=== PATIENT | male | born 1960 | race Caucasian/White ===

== ENCOUNTER 2019-12-14 15:17 | Emergency (ER) | payer OTHER, SELFPAY ==
--- NOTE | ~2019-12-14 | XR_ITS ---
XR humerus RT 12/14/2019 16:06 INDICATION: Right arm pain status post recent fall PROCEDURE: 4 views right humerus COMPARISON: No prior studies for comparison. FINDINGS: Fracture, dislocation or subluxation is not identified. The soft tissues appear within norm al limits. No foreign bodies are identified. IMPRESSION: 1: NO ACUTE BONE OR JOINT ABNORMALITY IDENTIFIED. Reviewed, dictated and finalized at location A.
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
[2019-12-14 15:36] VITALS: BP 161/90; PULSE 104; RESP 16; TEMP 37.6; O2SAT 98
== END 2019-12-14 16:29 | disposition home or self-care (01) ==
PROVIDERS: Emergency Provider Nurse Practitioner; PCP Family Medicine
DX: S49.91XA Unspecified injury of right shoulder and upper arm, initial encounter (principal); W19.XXXA Unspecified fall, initial encounter; S89.92XA Unspecified injury of left lower leg, initial encounter; E11.9 Type 2 diabetes mellitus without complications; Z79.84 Long term (current) use of oral hypoglycemic drugs
CPT/HCPCS: 73060; 99213; A4565; G0463

== ENCOUNTER 2020-03-08 13:20 | Emergency (ER) | payer OTHER, SELFPAY ==
--- NOTE | 2020-03-08 13:25 | ED.GENADULT ---
HPI - General Adult General Chief complaint: Skin/Abscess/Foreign Body Stated complaint: poss spider bite right leg Time Seen by Provider: 03/08/20 13:25 Source: patient Mode of arrival: ambulatory Limitations: no limitations History of Present Illness HPI narrative: 59-year-old male patient presents to the [facility] with complaints of a wound to the right lower leg for the past 6 weeks. Patient states that he was cutting down a tree in his yard about 6 weeks ago and had some blisters to the right lower leg area and thought maybe he came in contact with some poison julianna or poison oak. Patient states that it was starting to get better however for the last couple weeks is developed an ulcer which increase in pain but denies any discharge. Patient denies any fevers, body aches or chills. Patient is a diabetic but states his sugars have been okay. Related Data Home Medications Medication Instructions Recorded Confirmed glipizide 10 mg PO DAILY 11/06/19 03/08/20 lisinopril 10 mg PO DAILY 11/06/19 03/08/20 metformin 1,000 mg PO BID 11/06/19 03/08/20 diclofenac sodium 75 mg PO DAILY 12/14/19 03/08/20 tamsulosin 0.4 mg PO DAILY 03/08/20 03/08/20 Allergies Allergy/AdvReac Type Severity Reaction Status Date / Time No Known Allergies Allergy Verified 03/08/20 13:40 Review of Systems Review of Systems: Narrative: CONSTITUTIONAL: Denies fever, chills, or sweats. EYES: Denies visual changes, redness, or discharge. ENT: Denies rhinorrhea, congestion, sore throat, or otalgia. CARDIOVASCULAR: Denies chest pain, palpitations, or edema. RESPIRATORY: Denies cough or dyspnea. GASTROINTESTINAL: Denies abdominal pain, nausea, vomiting, or diarrhea. GENITOURINARY: Denies dysuria or hematuria. SKIN: Denies rash or itching. Positive wound to right lower leg MUSCULOSKELETAL: Denies back pain, joint pain, or myalgia. NEUROLOGIC: Denies headache, numbness, or weakness. PSYCHIATRIC: Denies anxiety or depression. COUNTS INCLUDE 234 BEDS AT THE [facility] Past Medical History Medical History Diabetes mellitus Surgical History Surgical History Status post gastric banding surgery (~2009) Family History Family History Father Lung cancer Social History Social History Smoking status: Never smoker Spiritual care concerns: No Comments At the time of my signature I agree with nursing past medical history, surgical, social, and family history. There is no relevant family history pertinent to the presenting complaint. Exam Narrative: Exam Narrative: GENERAL: Well-appearing, well-nourished, and in no acute distress. HEAD: Normocephalic, atraumatic. EYES: PERRLA and EOMI. ENT: Nares clear, no rhinorrhea or epistaxis. Mucous membranes moist. NECK: Supple. No lymphadenopathy CHEST: Clear to auscultation. No respiratory distress. HEART: Regular rate and rhythm. No murmur heard. Normal peripheral pulses. ABDOMEN: Soft, nontender, nondistended, normal active bowel sounds. EXTREMITIES: Normal range of motion. No edema. SKIN: Warm, dry, no rash. Patient has approximately 1.5 cm x 1.5 cm ulcer noted to the right lower leg. There is no abscess noted, no surrounding erythema or warmth to the skin. There is some tenderness noted around the area. There does appear to be some green discharge in the middle of the wound. NEURO: No focal deficits. Alert and oriented x3. Course Vital Signs Vital signs: Vital Signs Temperature 36.6 C 03/08/20 13:30 Pulse Rate 94 03/08/20 13:30 Respiratory Rate 16 03/08/20 13:30 Blood Pressure 124/79 03/08/20 13:30 Pulse Oximetry 99 03/08/20 13:30 Temperature 36.6 C 03/08/20 13:30 Pulse Rate 94 03/08/20 13:30 Respiratory Rate 16 03/08/20 13:30 Blood Pressure 124/79 03/08/20 13:30 Pulse Oximetry 99
[2020-03-08 13:30] VITALS: BP 124/79; PULSE 94; RESP 16; TEMP 36.6; O2SAT 99
== END 2020-03-08 13:49 | disposition home or self-care (01) ==
PROVIDERS: Emergency Provider Nurse Practitioner Family; PCP Family Medicine
DX: L97.911 Non-pressure chronic ulcer of unspecified part of right lower leg limited to breakdown of skin (principal); E11.9 Type 2 diabetes mellitus without complications
CPT/HCPCS: 99213; G0463

== ENCOUNTER 2021-10-11 08:09 | Outpatient (CLI) | payer OTHER, SELFPAY ==
[2021-10-11 08:55] LABS: Basophils Absolute Auto 0.1 K/mm3 (0.0-0.1); Basophils Percent Auto 1.3 % (0.2-1.2); Eosinophils Absolute Auto 0.3 K/mm3 (0-0.3); Eosinophils Percent Auto 3.7 % (0-4.4); Hematocrit 45.3 % (42.0-52.0); Hemoglobin 15.3 g/dL (14.0-18.0); Immature Granulocyte Absolute 0.06 K/mm3 (0.00-0.031); Immature Granulocyte Percent A 0.9 % (0-0.5); Lymphocytes Absolute Auto 1.27 K/mm3 (0.9-3.2); Lymphocytes Percent Auto 18.9 % (18.3-44.2); Mean Corpuscular HGB Conc 33.8 g/dl (32-36); Mean Corpuscular Hemoglobin 30.3 pg (26-34); Mean Corpuscular Volume 89.7 fl (80-100); Mean Platelet Volume 10.2 fl (7.4-10.4); Monocytes Absolute Auto 0.5 K/mm3 (0.1-0.6); Monocytes Percent Auto 7.6 % (2.6-8.5); Neutrophils Absolute Auto 4.6 K/mm3 (1.3-6.7); Neutrophils Percent Auto 67.6 % (45.5-73.1); Platelet Count Result 229 k/mm3 (150-375); Red Blood Count 5.05 M/mm3 (4.6-6.20); Red Cell Distribution Width 13.2 % (11.5-14.5); White Blood Count 6.7 K/mm3 (4.5-10.0)
[2021-10-11 09:01] LABS: Anion Gap 7 mmol/L (8-16); Blood Urea Nitrogen 17 mg/dL (9-20); Calcium 8.6 mg/dL (8.4-10.2); Carbon Dioxide 29 mmol/L (22-30); Chloride 101 mmol/L (98-107); Estimated Glomerular Filt Rate > 60; Glucose 219 mg/dL (65-110); Hemoglobin A1C 8.5 % (<5.7); Potassium 4.1 mmol/L (3.4-5.0); Sodium 137 mmol/L (137-145)
== END 2021-10-11 08:10 | disposition home or self-care (01) ==
PROVIDERS: PCP Family Medicine; Visit Provider Family Medicine
DX: E11.9 Type 2 diabetes mellitus without complications (principal); I10 Essential (primary) hypertension
CPT/HCPCS: 36415; 80048; 83036; 85025

== ENCOUNTER 2022-02-21 06:40 | Outpatient (CLI) | payer OTHER, SELFPAY ==
[2022-02-21 07:26] LABS: Anion Gap 10 mmol/L (8-16); Blood Urea Nitrogen 14 mg/dL (9-20); Calcium 8.6 mg/dL (8.4-10.2); Carbon Dioxide 29 mmol/L (22-30); Chloride 100 mmol/L (98-107); Estimated Glomerular Filt Rate > 60; Glucose 189 mg/dL (65-110); Hemoglobin A1C 9.5 % (<5.7); Potassium 4.2 mmol/L (3.4-5.0); Sodium 139 mmol/L (137-145)
== END 2022-02-21 06:41 | disposition home or self-care (01) ==
LOC: ANHLAB 06:44
PROVIDERS: PCP Family Medicine; Visit Provider Family Medicine
DX: E11.9 Type 2 diabetes mellitus without complications (principal)
CPT/HCPCS: 36415; 80048; 83036

== ENCOUNTER 2022-05-24 06:38 | Outpatient (CLI) | payer OTHER, SELFPAY ==
[2022-05-24 08:03] LABS: Anion Gap 5 mmol/L (8-16); Blood Urea Nitrogen 17 mg/dL (9-20); Calcium 8.4 mg/dL (8.4-10.2); Carbon Dioxide 28 mmol/L (22-30); Chloride 103 mmol/L (98-107); Estimated Glomerular Filt Rate > 60; Glucose 201 mg/dL (65-110); Sodium 136 mmol/L (137-145)
[2022-05-24 08:26] LABS: Hemoglobin A1C 8.7 % (<5.7)
== END 2022-05-24 06:39 | disposition home or self-care (01) ==
PROVIDERS: PCP Family Medicine; Visit Provider Family Medicine
DX: E11.9 Type 2 diabetes mellitus without complications (principal)
CPT/HCPCS: 36415; 80048; 83036

== ENCOUNTER 2022-08-01 06:36 | Outpatient (CLI) | payer OTHER, SELFPAY ==
[2022-08-01 07:37] LABS: Basophils Absolute Auto 0.1 K/mm3 (0.0-0.1); Basophils Percent Auto 0.9 % (0.2-1.2); Eosinophils Absolute Auto 0.4 K/mm3 (0-0.3); Eosinophils Percent Auto 5.1 % (0-4.4); Hematocrit 45.5 % (42.0-52.0); Hemoglobin 15.4 g/dL (14.0-18.0); Immature Granulocyte Absolute 0.06 K/mm3 (0.00-0.031); Immature Granulocyte Percent A 0.9 % (0-0.5); Lymphocytes Absolute Auto 1.51 K/mm3 (0.9-3.2); Lymphocytes Percent Auto 21.9 % (18.3-44.2); Mean Corpuscular HGB Conc 33.8 g/dl (32-36); Mean Corpuscular Hemoglobin 30.2 pg (26-34); Mean Corpuscular Volume 89.2 fl (80-100); Mean Platelet Volume 10.3 fl (7.4-10.4); Monocytes Absolute Auto 0.6 K/mm3 (0.1-0.6); Neutrophils Absolute Auto 4.4 K/mm3 (1.3-6.7); Neutrophils Percent Auto 63.2 % (45.5-73.1); Platelet Count Result 255 k/mm3 (150-375); Red Cell Distribution Width 13.2 % (11.5-14.5); White Blood Count 6.9 K/mm3 (4.5-10.0)
[2022-08-01 07:54] LABS: Alanine Aminotransferase 23 U/L (6-50); Albumin Level 4.5 g/dL (3.5-5.1); Alkaline Phosphatase 84 U/L (38-126); Anion Gap 7 mmol/L (8-16); Aspartate Amino Transferase 26 U/L (17-59); Bilirubin,Total 0.9 mg/dL (0.2-1.3); Blood Urea Nitrogen 17 mg/dL (9-20); Calcium 8.9 mg/dL (8.4-10.2); Carbon Dioxide 31 mmol/L (22-30); Chloride 99 mmol/L (98-107); Cholesterol 225 mg/dL (0-200); Estimated Glomerular Filt Rate > 60; Glucose 229 mg/dL (65-110); HDL Direct 38 mg/dL; Potassium 4.4 mmol/L (3.4-5.0); Sodium 137 mmol/L (137-145); Triglycerides 216 mg/dL (<150)
[2022-08-01 07:58] LABS: LDL Cholesterol Direct 138 mg/dL
[2022-08-01 08:14] LABS: Hemoglobin A1C 9.3 % (<5.7)
[2022-08-01 08:17] LABS: Prostate Specific Antigen < 0.1 ng/mL (< OR = 4.0)
== END 2022-08-01 06:37 | disposition home or self-care (01) ==
LOC: ANHLAB 06:39
PROVIDERS: PCP Family Medicine; Visit Provider Family Medicine
DX: E78.5 Hyperlipidemia, unspecified (principal); Z79.899 Other long term (current) drug therapy; E11.9 Type 2 diabetes mellitus without complications; I10 Essential (primary) hypertension
CPT/HCPCS: 36415; 80048; 80061; 80076; 83036; 84153; 85025

== ENCOUNTER 2022-10-31 07:12 | Outpatient (CLI) | payer OTHER, SELFPAY ==
[2022-10-31 08:16] LABS: Hemoglobin A1C 7.4 % (<5.7)
[2022-10-31 08:50] LABS: Anion Gap 7 mmol/L (8-16); Blood Urea Nitrogen 15 mg/dL (9-20); Calcium 8.7 mg/dL (8.4-10.2); Carbon Dioxide 28 mmol/L (22-30); Chloride 101 mmol/L (98-107); Estimated Glomerular Filt Rate > 60; Glucose 283 mg/dL (65-110); Potassium 4.3 mmol/L (3.4-5.0); Sodium 136 mmol/L (137-145)
== END 2022-10-31 07:13 | disposition home or self-care (01) ==
PROVIDERS: PCP Family Medicine; Visit Provider Family Medicine
DX: E11.9 Type 2 diabetes mellitus without complications (principal)
CPT/HCPCS: 36415; 80048; 83036

== ENCOUNTER 2023-03-21 07:12 | Outpatient (CLI) | payer OTHER, SELFPAY ==
[2023-03-21 07:49] LABS: Basophils Absolute Auto 0.1 K/mm3 (0.0-0.1); Basophils Percent Auto 0.7 % (0.2-1.2); Eosinophils Absolute Auto 0.5 K/mm3 (0-0.3); Eosinophils Percent Auto 7.3 % (0-4.4); Hematocrit 43.6 % (42.0-52.0); Hemoglobin 14.4 g/dL (14.0-18.0); Immature Granulocyte Absolute 0.06 K/mm3 (0.00-0.031); Immature Granulocyte Percent A 0.9 % (0-0.5); Lymphocytes Percent Auto 19.3 % (18.3-44.2); Mean Corpuscular Hemoglobin 30.6 pg (26-34); Mean Corpuscular Volume 92.6 fl (80-100); Mean Platelet Volume 9.5 fl (7.4-10.4); Monocytes Absolute Auto 0.5 K/mm3 (0.1-0.6); Monocytes Percent Auto 7.9 % (2.6-8.5); Neutrophils Absolute Auto 4.3 K/mm3 (1.3-6.7); Neutrophils Percent Auto 63.9 % (45.5-73.1); Platelet Count Result 220 k/mm3 (150-375); Red Blood Count 4.71 M/mm3 (4.6-6.20); White Blood Count 6.7 K/mm3 (4.5-10.0)
[2023-03-21 08:05] LABS: Alanine Aminotransferase 17 U/L (6-50); Albumin Level 4.1 g/dL (3.5-5.1); Alkaline Phosphatase 79 U/L (38-126); Anion Gap 8 mmol/L (8-16); Aspartate Amino Transferase 22 U/L (17-59); Bilirubin,Total 0.7 mg/dL (0.2-1.3); Blood Urea Nitrogen 15 mg/dL (9-20); Calcium 8.8 mg/dL (8.4-10.2); Carbon Dioxide 28 mmol/L (22-30); Chloride 102 mmol/L (98-107); Cholesterol 195 mg/dL (0-200); Estimated Glomerular Filt Rate > 60; Glucose 156 mg/dL (65-110); HDL Direct 40 mg/dL; Potassium 4.1 mmol/L (3.4-5.0); Sodium 138 mmol/L (137-145); Triglycerides 164 mg/dL (<150)
[2023-03-21 08:13] LABS: LDL Cholesterol Direct 101 mg/dL
[2023-03-21 08:31] LABS: Thyroid Stimulating Hormone 0.782 uIU/mL (0.465-4.680)
[2023-03-21 08:36] LABS: Hemoglobin A1C 6.8 % (<5.7)
[2023-03-21 08:44] LABS: Free T4 Free Thyroxine 1.32 ng/mL (0.78-2.19)
== END 2023-03-21 07:13 | disposition home or self-care (01) ==
LOC: ANHLAB 07:18
PROVIDERS: PCP Family Medicine; Visit Provider Family Medicine
DX: E78.5 Hyperlipidemia, unspecified (principal); E11.9 Type 2 diabetes mellitus without complications; I10 Essential (primary) hypertension; L29.9 Pruritus, unspecified; Z79.899 Other long term (current) drug therapy
CPT/HCPCS: 36415; 80048; 80061; 80076; 83036; 84439; 84443; 85025

== ENCOUNTER 2023-12-18 07:06 | Outpatient (CLI) | payer OTHER, SELFPAY ==
[2023-12-18 08:30] LABS: Hemoglobin A1C 7.2 % (<5.7)
== END 2023-12-18 07:07 | disposition home or self-care (01) ==
LOC: ANHLAB 07:11
PROVIDERS: PCP Family Medicine; Visit Provider Nurse Practitioner Family
DX: E11.9 Type 2 diabetes mellitus without complications (principal)
CPT/HCPCS: 36415; 83036

== ENCOUNTER 2024-03-27 07:16 | Outpatient (CLI) | payer OTHER, SELFPAY ==
[2024-03-27 09:36] LABS: Hemoglobin A1C 6.2 % (<5.7)
== END 2024-03-27 07:17 | disposition home or self-care (01) ==
LOC: ANHLAB 07:19
PROVIDERS: PCP Family Medicine; Visit Provider Nurse Practitioner Family
DX: E11.9 Type 2 diabetes mellitus without complications (principal)
CPT/HCPCS: 36415; 83036

== ENCOUNTER 2025-02-18 13:03 | Outpatient (CLI) | payer OTHER, MEDICARE, SELFPAY ==
--- OUTSIDE RECORDS SUMMARY | 2025-02-19 11:19 | XMS_ITS | Clinical Summary ---
Author Organization [facility] [address] [facility] Address [address] [place] [address] Phone Care Team Providers Care General Passenger Agent Name Role Phone Isadora Larry MD Primary Care Provider + Allergies No known active allergies Medications metFORMIN (GLUCOPHAGE) 500 mg tablet Take 1,000 mg by mouth 2 times daily with meals. Active lisinopriL (PRINIVIL) 10 mg tablet Take 10 mg by mouth daily. Active glipiZIDE (GLUCOTROL) 10 mg tablet Take 10 mg by mouth daily with breakfast. Active diclofenac sodium (VOLTAREN) 75 mg Tablet, Delayed Release (E.C.) 0 Active mupirocin (BACTROBAN) 2 % Ointment JEREMY EXT AA BID 0 Active oxybutynin chloride (DITROPAN XL) 5 mg Extended Release 24 hour tablet Take 1 Tablet (5 mg) by mouth daily. 90 Tablet 1 2 Active tadalafil (CIALIS) 5 mg tablet TAKE 1 TABLET BY MOUTH EVERY DAY NEEDED FOR ERECTILE DYSFUNCTION 30 Tablet 1 2 Active Active Problems Problem Noted Date Diagnosed Date Prostate cancer 12/06/2019 Cancer Staging:Clinical stage from 12/06/2019:Stage IIC(cT1c, cN0, cM0, PSA: 6.8, Grade Group: 3) - Signed by Avis Tomlin MD on 12/06/2019 Encounters Date Type Department Care Team Description 02/11/2025 External Device Data [facility] Provider, Abstract 02/10/2025 External Device Data [facility] Provider, Abstract 02/04/2025 External Device Data [facility] Provider, Abstract 12/30/2024 External Device Data [facility] Provider, Abstract 12/16/2024 External Device Data [facility] Provider, Abstract 12/02/2024 External Device Data [facility] Provider, Abstract 12/02/2024 External Device Data [facility] Provider, Abstract 11/25/2024 External Device Data [facility] Provider, Abstract from Last 3 Months Family History Medical History Relation Name Comments Diabetes Brother 1 Unknown Brother 2 Alcohol abuse Brother 3 Diabetes Brother 3 Heart Disease Brother 3 Hypertension Brother 3 Healthy Daughter 1 Healthy Daughter 2 Healthy Daughter 3 Alcohol abuse Father Emphysema Father Heart Disease Father Hypertension Father Heart Attack Maternal Grandfather Diabetes Maternal Grandmother Diabetes Mother Hypertension Mother Unknown Paternal Grandfather Unknown Paternal Grandmother Diabetes Sister 1 Heart Disease Sister 1 Unknown Sister 2 Other Son 1 prostate issues & having it checked Healthy Son 2 Relation Name Status Comments Brother 1 Alive Brother 2 Alive Brother 3 Alive Daughter 1 Alive Daughter 2 Alive Daughter 3 Alive Father Maternal Grandfather Maternal Grandmother Mother Paternal Grandfather Paternal Grandmother Sister 1 Sister 2 Alive Son 1 Alive Son 2 Alive Social History Tobacco Use Types Packs/Day Years Used Date Smoking Tobacco: Former Cigarettes Smokeless Tobacco: Never Alcohol Use Standard Drinks/Week Comments Yes 0 (1 standard drink = 0.6 oz pur e alcohol) Sex and Gender Information Value Date Recorded Sex Assigned at Not on file Legal Sex Male 9:27 PM CDT Gender Identity Not on file Sexual Orientation Not on file Last Filed Vital Signs Vital Sign Reading Time Taken Comments Blood Pressure 179/90 04/20/2021 8:44 AM ROTARY OPERATOR Pulse 74 04/20/2021 8:44 AM ROTARY OPERATOR Temperature 36.7 C (98 F) 04/01/2020 9:15 AM ROTARY OPERATOR Respiratory Rate 18 04/20/2021 8:44 AM ROTARY OPERATOR Oxygen Saturation 98% 04/20/2021 8:44 AM ROTARY OPERATOR Inhaled Oxygen Concentration - - Weight 86.2 kg (190 lb) 04/20/2021 8:44 AM ROTARY OPERATOR Height 167.6 cm (5' 6) 12/08/2019 3:26 PM CDT Body Mass Index 30.67 12/08/2019 3:26 PM CDT Plan of Treatment Health Maintenance Due Date Last Done Comments DIABETES ANNUAL FOOT EXAM 08/03/1977 DIABETES ANNUAL RETINAL EXAM 08/03/1977 DIABETES HBA1C Q 6 MONTHS 08/03/1977 DIABETES MICROALBUMIN ANNUAL SCREEN 08/03/1977 LDL CHOLESTEROL ANNUAL 08/03/1977 DTAP/TDAP/TD VACCINES (1 - Tdap) 08/03/1978 PNEUMOCOCCAL VACCINE 50+ YEA RS (1 of 2 - PCV) 08/03/1978 COLORECTAL SCREENING 08/03/2004 Colorectal Cancer Screening 08/03/2004 FIT-DNA Q 3 years 08/03/2004 FIT/FOBT Q 1 year 08/03/2004 Flex Sig/CT Colonography Q 5 years 08/03/2004 ZOSTER VACCINE (1 of 2) 08/03/2009 INFLUENZA VACCINE (#1) 2024 2, 01/14/2018, 02/07/2016, Additional history exists RSV VACCINE (60+ or ) (1 - 1-dose 75+ series) 08/03/2034 Insurance [facility] CHOICE [id number] Care Teams General Passenger Agent Relationship Specialty Start Date End Date Isadora Larry MD [address] [place] [address] [place] [id number] PCP - General Family Practice 12/08/19
--- OUTSIDE RECORDS SUMMARY | 2025-02-19 11:19 | XMS_ITS | Data Portability ---
Author Organization [facility] [place], Main Office Address [address] [place] [address] Care Team Providers Care Nutrition And Dietetics Instructor Name Role Phone BENOIT LARRY Primary Care Provider [phone] BENOIT LARRY Referring Provider Assessment No assessment recorded. Plan of Treatment Reminders Order Date Submit Date Provider Last Modified By Organization Details Last Modified Time Details Appointments Physical/ Annual Wellness 30 2024 08:00A Duane Underwood NP Not available Not available Not available Lab glycohemo globin, total, blood 2023 024 [email or web address] [id number] [facility] (Lab), [address] [place], [address], 04/17/2024 08:22:55 hepatic function panel, serum 2022 023 [email or web address] [facility] (Lab), [address] [place], [address], 03/27/2023 08:49:23 TSH + free T4, serum 2022 023 [email or web address] [facility] (Lab), [address] [place], [address], 03/27/2023 08:49:23 Referral None recorded. Procedures None recorded. Surgeries None recorded. Imaging None recorded. Medication Orders losartan 100 mg tablet 2024 025 [facility] #38484, [address] [facility], [place], [place], [id number], 04/17/2024 08:41:09 Glyxambi 25 mg-5 mg tablet 2024 025 [facility] #30798, [address] [place], [place], [id number], 04/17/2024 08:41:12 glipizide ER 10 mg tablet, extended release 24 hr 2024 [facility] #35582, [address] [place] [address], [id number], 04/17/2024 08:41:10 Mounjaro 7.5 mg/0.5 mL subcutane ous pen injector 2024 [facility] #01592, [address] [place] [address], [id number], 04/17/2024 08:41:09 tadalafil 20 mg tablet 2023 024 [email or web address] 77 [facility] #05365, [address] [place] [address], [id number], 04/17/2024 08:27:26 triamcino lone acetonide 0.1 % topical cream 2023 024 [email or web address] [facility] #66854, [address] [place] [address], [id number], 12/20/2023 09:37:32 losartan 100 mg tablet 2023 024 [facility] #81392, [address] [place], [place], [id number], 07/19/2023 08:28:16 triamcino lone acetonide 0.1 % topical cream 2022 023 [facility] #66230, [address] [place], [place], [id number], 12/20/2023 09:37:32 hydroxyzi ne HCl 25 mg tablet 2022 023 [email or web address] [facility] #09803, [address] [place], [place], [id number], 12/20/2023 09:37:20 prednison e 20 mg tablet 2022 023 [email or web address] [facility] #60863, [address] [place], [place], [id number], 07/19/2023 08:15:07 Patient TargetsNo targets recorded. Patient InstructionsNo instructions recorded. Reason for Referral None Reported. Results Created Date Observation Date Name Description Value Unit Range Abnormal Flag Note LastModifiedBy Organization Detail LastModifiedTime 07/12/19 24 07/12/2023 PSA, TOTAL PSA, total 0.07 NG/mL 0.00-4 .00 Not Available [facility] (Lab) [address] [place], [address], 07/12/2023 21:52:13 07/12/19 24 07/12/2023 BASIC METAB OLIC PANEL sodium 139 mmol/ L 137-14 5 Not Available [facility] (Lab) [address] [place], [address], 07/12/2023 22:01:27 07/12/19 24 07/12/2023 BASIC METAB OLIC PANEL potassium 4.2 mmol/ L 3.5-5. 1 Not Available [facility] (Lab) [address] [place], [address], 07/12/2023 22:01:27 07/12/19 24 07/12/2023 BASIC METAB OLIC PANEL chloride 107 mmol/ L 98-107 Not Available [facility] (Lab) [address] [place], [address], 07/12/2023 22:01:27 07/12/19 24 07/12/2023 BASIC METAB OLIC PANEL carbon dioxide 28 mmol/ L 22-30 Not Available [facility] (Lab) [address] [place], [address], 07/12/2023 22:01:27 07/12/19 24 07/12/2023 BASIC METAB OLIC PANEL anion gap 8.2 mmol/ L 14-22 low Not Available [facility] (Lab) [address] [place], [address], 07/12/2023 22:01:27 07/12/19 24 07/12/2023 BASIC METAB OLIC PANEL glucose 155 mg/dL 70-99 high Not Available [facility] (Lab) [address] [place], [address], 07/12/2023 22:01:27 07/12/19 24 07/12/2023 BASIC METAB OLIC PANEL BUN 15 mg/dL 8-19 Not Available [facility] (Lab) [address] [place], [address], 07/12/2023 22:01:27 07/12/19 24 07/12/2023 BASIC METAB OLIC PANEL creatinine 1.03 mg/dL 0.66-1 .25 Not Available [facility] (Lab) [address] [place], [address], 07/12/2023 22:01:27 07/12/19 24 07/12/2023 BASIC METAB OLIC PANEL GFR >60 Refer ence Range : [place] GFR Healt hy Adult : >60 mL/mi n/1.7 3 m2 Chron ic Kidne y Disea se: 15-60 mL/mi n/1.7 3 m2 Kidne y Failu re: <15/m L/min /1.73 m2 www.n iddk. nih.g ov The MDRD study equat ion has not been valid ated in child tobias <18 years of age; pregn ant women ; the elder ly >85 years of age; or in some racia l or ethni c subgr oups, such as Hiskatheryn nics. Outsi de the valid ated florence eters , estim ated GFR is less accur ate, requi ring clini tani judgm ent on a case- by-ca se basis . Clini tani inter preta tion for other races and ages must be made by the clini shantell. The MDRD study equat ion has not been valid ated for the evalu ation of serum creat inine relat ed to nutri amber l statu s or medic ation usage . For perso ns <18 years of age, a pedia tric GFR calcu lator is avail able on the [facility] websi te: https ://annia w.kid aniket.o amy/pr ofess ional s/kdo qi/gf r_cal culat or Not Available [facility] (Lab) [address] [place], [address], 07/12/2023 22:01:27 07/12/19 24 07/12/2023 BASIC METAB OLIC PANEL calcium 9.0 mg/dL 8.4-10 .2 Not Available [facility] (Lab) [address] [place], [address], 07/12/2023 22:01:27 07/12/19 24 07/12/2023 LIPID PANEL cholesterol 181 mg/dL 140-19 9 NIH AN NSUS RECOM MENDA TION FOR DONNA STERO L: ADULT CHILD LOW RISK: <200 <170 BORDE RLINE : <200- 239 ----- HIGH RISK: >240 >200 Not Available [facility] (Lab) [address] [place], [address], 07/12/2023 22:01:37 07/12/19 24 07/12/2023 LIPID PANEL triglyceride s 83 mg/dL 0-150 NIH AN NSUS REPOR T RECOM MENDA TION FOR TRIGL YCERI KANE: ADULT CHILD LOW RISK: <150 ----- BODER LINE: 150-1 99 ----- HIGH RISK: >200 ----- Not Available [facility] (Lab) [address] [place], [address], 07/12/2023 22:01:37 07/12/19 24 07/12/2023 LIPID PANEL HDL cholesterol 52 mg/dL 40- Not Available [facility] (Lab) [address] [place], [address], 07/12/2023 22:01:37 07/12/19 24 07/12/2023 LIPID PANEL LDL cholesterol, calculated 112 mg/dL 0-130 NIH AN NSUS REPOR T RECOM MENDA TIONS FOR LDL: ADULT CHILD LOW RISK <130 <110 (OPTI MAL LDL) <100 ----- BORDE RLINE : 130-1 59 ----- HIGH RISK: >160 >130 A TRIGL YCERI DE RESUL T >400 INVAL IDATE S THE CALCU LATIO N FOR LDL FRACT IONAT ION - THE LDL RESUL T WILL NOT BE REPOR ROSSY. Not Available [facility] (Lab) [address] [place], [address], 07/12/2023 22:01:37 07/12/19 24 07/12/2023 CBC/C OMPLE TE BLD COUNT W/DIF F white blood cells 7.2 x10'3 /uL 4.2-10 .8 Not Available [facility] (Lab) [address] [place], [address], 07/12/2023 23:21:55 07/12/19 24 07/12/2023 CBC/C OMPLE TE BLD COUNT W/DIF F red blood cells 4.95 x10'6 /uL 4.10-5 .80 Not Available [facility] (Lab) [address] [place], [address], 07/12/2023 23:21:55 07/12/19 24 07/12/2023 CBC/C OMPLE TE BLD COUNT W/DIF F hemoglobin 15.3 g/dL 13.2-1 7.0 Not Available [facility] (Lab) [address] [place], [address], 07/12/2023 23:21:55 07/12/19 24 07/12/2023 CBC/C OMPLE TE BLD COUNT W/DIF F hematocrit 44.5 % 39.3-5 0.0 Not Available [facility] (Lab) [address] [place], [address], 07/12/2023 23:21:55 07/12/19 24 07/12/2023 CBC/C OMPLE TE BLD COUNT W/DIF F mean red cell volume 89.9 fL 80.0-9 7.0 Not Available [facility] (Lab) [address] [place], [address], 07/12/2023 23:21:55 07/12/19 24 07/12/2023 CBC/C OMPLE TE BLD COUNT W/DIF F mean red cell hemoglobin 30.9 pg 27.0-3 3.0 Not Available [facility] (Lab) [address] [place], [address], 07/12/2023 23:21:55 07/12/19 24 07/12/2023 CBC/C OMPLE TE BLD COUNT W/DIF F mean RBC HGB concentratio n 34.4 g/dL 31.0-3 6.0 Not Available [facility] (Lab) [address] [place], [address], 07/12/2023 23:21:55 07/12/19 24 07/12/2023 CBC/C OMPLE TE BLD COUNT W/DIF F red cell distribution width 12.9 % 11.8-1 5.5 Not Available [facility] (Lab) [address] [place], [address], 07/12/2023 23:21:55 07/12/19 24 07/12/2023 CBC/C OMPLE TE BLD COUNT W/DIF F platelets 245 x10'3 /uL 150-40 0 Not Available [facility] (Lab) [address] [place], [address], 07/12/2023 23:21:55 07/12/19 24 07/12/2023 CBC/C OMPLE TE BLD COUNT W/DIF F mean platelet volume 10.3 fL 9.0-12 .4 Not Available [facility] (Lab) [address] [place], [address], 07/12/2023 23:21:55 07/12/19 24 07/12/2023 CBC/C OMPLE TE BLD COUNT W/DIF F neutrophils 69.1 % 39.0-7 2.0 Not Available [facility] (Lab) [address] [place], [address], 07/12/2023 23:21:55 07/12/19 24 07/12/2023 CBC/C OMPLE TE BLD COUNT W/DIF F lymphocytes 16.7 % 16.0-4 7.0 Not Available [facility] (Lab) [address] [place], [address], 07/12/2023 23:21:55 07/12/19 24 07/12/2023 CBC/C OMPLE TE BLD COUNT W/DIF F monocytes 7.2 % 5.0-12 .0 Not Available [facility] (Lab) [address] [place], [address], 07/12/2023 23:21:55 07/12/19 24 07/12/2023 CBC/C OMPLE TE BLD COUNT W/DIF F eosinophils 5.6 % 1.0-7. 0 Not Available [facility] (Lab) [address] [place], [address], 07/12/2023 23:21:55 07/12/19 24 07/12/2023 CBC/C OMPLE TE BLD COUNT W/DIF F basophils 1.0 % 0.0-2. 0 Not Available [facility] (Lab) [address] [place], [address], 07/12/2023 23:21:55 07/12/19 24 07/12/2023 CBC/C OMPLE TE BLD COUNT W/DIF F immature granulocytes 0.4 % 0.00-0 .50 Not Available [facility] (Lab) [address] [place], [address], 07/12/2023 23:21:55 07/12/19 24 07/12/2023 CBC/C OMPLE TE BLD COUNT W/DIF F neutrophils, absolute count 4.98 x10'3 /uL 1.5-8. 0 Not Available [facility] (Lab) [address] [place], [address], 07/12/2023 23:21:55 07/12/19 24 07/12/2023 CBC/C OMPLE TE BLD COUNT W/DIF F lymphocytes, absolute count 1.20 x10'3 /uL 1.07-3 .43 Not Available [facility] (Lab) [address] [place], [address], 07/12/2023 23:21:55 07/12/19 24 07/12/2023 CBC/C OMPLE TE BLD COUNT W/DIF F monocytes, absolute count 0.52 x10'3 /uL 0.29-0 .99 Not Available [facility] (Lab) [address] [place], [address], 07/12/2023 23:21:55 07/12/19 24 07/12/2023 CBC/C OMPLE TE BLD COUNT W/DIF F eosinophils, absolute count 0.40 x10'3 /uL 0.02-0 .53 Not Available [facility] (Lab) [address] [place], [address], 07/12/2023 23:21:55 07/12/19 24 07/12/2023 CBC/C OMPLE TE BLD COUNT W/DIF F basophils, absolute count 0.07 x10'3 /uL 0.01-0 .08 Not Available [facility] (Lab) [address] [place], [address], 07/12/2023 23:21:55 07/12/19 24 07/12/2023 CBC/C OMPLE TE BLD COUNT W/DIF F immature granulocytes ,absolute 0.03 x10'3 /uL 0.00-0 .05 Not Available [facility] (Lab) [address] [place], [address], 07/12/2023 23:21:55 07/12/19 24 07/12/2023 CBC/C OMPLE TE BLD COUNT W/DIF F nucleated red blood cells 0.0 % -0 Not Available [facility] (Lab) [address] [place], [address], 07/12/2023 23:21:55 07/12/19 24 07/12/2023 CBC/C OMPLE TE BLD COUNT W/DIF F NRBC# 0.00 x10'3 /uL Not Available [facility] (Lab) [address] [place], [address], 07/12/2023 23:21:55 07/12/19 24 07/12/2023 HEMOG LOBIN A1C HA1C 6.9 % 4.0-6. 0 high Diabe shania Scree yannick Crite mac: <5.7% Consi stent with absen ce of diabe shania 5.7-6 .4% Consi stent with incre ased risk for diabe shania (pred iabet es) >OR=6 .5% Consi stent with diabe shania REFER ENCE: Diabe shania Care 2016, 39(Pina ppl.1 ):s13 -s22 Not Available [facility] (Lab) [address] [place], [address], 07/12/2023 23:23:30 Result Notes None recorded. Problems Name Problem SNOMED Code Status Onset Date Resolution Date Notes Provider Name and Address Organization Details Recorded Time Hypertensive disorder 47390375 Active Not Available [facility] 3 12:46:51 Type 2 diabetes mellitus 53472381 Active Not Available [facility] 3 12:46:51 Prostate specific antigen above reference range 045549894 Active 2019 Not Available [facility] 3 12:46:51 Diabetes mellitus 81444742 Active 2022 Benoit Larry MD [address], [place], [address] , [employer] 3 17:48:49 Hyperlipidemi a 09950940 Active 2022 Benoit Larry MD [address], [place], [address] , [employer] 3 13:50:33 Type 2 diabetes mellitus without complication 884953955 Active 2022 Benoit Larry MD [address], [place], [address] , [employer] 3 09:09:51 Eczema 46257590 Active 2022 Benoit Larry MD [address], [place], [address] , [employer] 3 09:17:03 Folliculitis 10825344 Active 2022 Benoit Larry MD [address], [place], [address] , [employer] 3 09:18:03 Pruritic rash 25470194 Active 2022 Benoit Larry MD [address], [place], [address] , [employer] [facility] 3 13:45:57 Itching of skin 838888047 Active 2022 AYDEN Zepeda [address], [address], [place], [address] , [employer] 3 15:56:16 Pain in right arm 360480768 Active 2022 AYDEN Zepeda [address], [address], [place], [address] , [employer] 3 16:02:31 Essential hypertension 00246080 Active 2023 Benoit Larry MD [address], [address], [place], [address] , [employer] 4 08:24:08 Psoriasis 4853566 Active 2023 Benoit Larry MD [address], [place], [place], [address] , [employer] 4 08:27:27 Erectile dysfunction 405318338 Active 2023 AYDEN Lopez [address] [facility], [address], [place], [address] , [employer] 4 09:40:59 Upper respiratory infection 85911662 Active 2024 AYDEN Lopez [address] [facility], [address], [place], [address] , [employer] 5 14:15:20 Bilateral hearing loss 77269843 Active 2024 AYDEN Lopez [address] [facility], [address], [place], [address] , [employer] 5 14:22:30 Problem Notes None recorded. Medical Equipment None Reported. Allergies No known drug allergies Medications Name Sig Start Date Stop Date Status Note LastModified by Organization Details LastModified Time cyclobenzap rine 10 mg tablet TK 1 T PO TID PRF MUSCLE SPASM 12/19 completed Not Available Not Available Not Available silver sulfadiazin e 1 % topical cream APPLY A 1/16INCH THICK LATER TO ENTIRE BURN AREA TWICE DAILY 12/19 completed Not Available Not Available Not Available metformin 500 mg tablet TAKE 2 TABLETS BY MOUTH TWICE DAILY 05/19 completed Not Available Not Available Not Available azithromyci n 250 mg tablet TAKE 2 TABLETS (500 MG) BY ORAL ROUTE ONCE DAILY FOR 1 DAY THEN 1 TABLET (250 MG) BY ORAL ROUTE ONCE DAILY FOR 4 DAYS active Not Available Not Available No t Available hydrocodone 5 mg-acetamin ophen 325 mg tablet Take 1 tablet every 6 hours by oral route. active Not Available Not Available No t Available glipizide ER 10 mg tablet, extended release 24 hr TAKE 2 TABLETS BY MOUTH EVERY DAY IN THE MORNING active Not Available Not Available No t Available glipizide 10 mg tablet TAKE ONE TABLET BY MOUTH TWICE DAILY 05/19 completed Not Available Not Available Not Available prednisone 20 mg tablet TAKE 2 TABLETS BY MOUTH EVERY DAY FOR 5 DOSES 07/18 completed Not Available Not Available Not Available sulfamethox azole 800 mg-trimetho prim 160 mg tablet 05/19 completed Not Available Not Available Not Available hydrocodone 10 mg-acetamin ophen 325 mg tablet Take 1 tablet every 4 hours by oral route as needed. 02/22 completed Not Available Not Available Not Available tramadol 50 mg tablet Take 1 tablet every 6 hours by oral route for 4 days. active Not Available Not Available No t Available sildenafil 100 mg tablet TAKE 1 TABLET BY MOUTH EVERY DAY NEEDED 12/19 completed Not Available Not Available Not Available triamcinolo ne acetonide 0.1 % topical cream APPLY THIN LAYER TOPICALLY TO THE AFFECTED AREA TWICE DAILY 12/19 completed Not Available Not Available Not Available ketorolac 0.5 % eye drops INSTILL 1 DROP IN RIGHT EYE THREE TIMES DAILY 04/17 completed Not Available Not Available Not Available amoxicillin 875 mg tablet Take 1 tablet every 12 hours by oral route for 7 days. active Not Available Not Available No t Available tamsulosin 0.4 mg capsule TAKE 1 CAPSULE BY MOUTH EVERY DAY 12/19 completed Not Available Not Available Not Available OneTouch Ultra Test strips 04/17 completed Not Available Not Available Not Available cephalexin 500 mg capsule TAKE 1 CAPSULE BY MOUTH TWICE DAILY FOR 7 DAYS 07/18 completed Not Available Not Available Not Available lisinopril 10 mg tablet TK ONE T PO QD. active Not Available Not Available No t Available losartan 25 mg tablet TAKE 1 TABLET BY MOUTH EVERY DAY 07/18 completed Not Available Not Available Not Available oxybutynin chloride ER 5 mg tablet,exte nded release 24 hr 12/19 completed Not Available Not Available Not Available gabapentin 300 mg capsule TAKE 1 CAPSULE BY MOUTH EVERY NIGHT AT BEDTIME FOR 15 DAYS 12/19 completed Not Available Not Available Not Available diclofenac sodium 75 mg tablet,crystal yed release TK 1 T PO BID PRN 12/19 completed Not Available Not Available Not Available hydroxyzine HCl 25 mg tablet TAKE 1 TABLET BY MOUTH FOUR TIMES DAILY NEEDED 12/19 completed Not Available Not Available Not Available mupirocin 2 % topical ointment JEREMY EXT AA BID active Not Available Not Available No t Available albuterol sulfate HFA 90 mcg/actuati on aerosol inhaler Inhale 2 puffs every 4 hours by inhalatio n route. 12/19 completed Not Available Not Available Not Available losartan 100 mg tablet TAKE 1 TABLET BY MOUTH EVERY DAY active Not Available Not Available No t Available metformin ER 500 mg tablet,exte nded release 24 hr TAKE 4 TABLETS BY MOUTH EVERY DAY 05/12 completed Not Available Not Available Not Available doxycycline hyclate 100 mg tablet TAKE 1 TABLET BY MOUTH TWICE DAILY FOR 7 DAYS active Not Available Not Available No t Available glipizide 5 mg tablet TAKE 1 TABLET BY MOUTH EVERY MORNING AND 2 TABLETS EVERY EVENING active Not Available Not Available No t Available tadalafil 5 mg tablet TAKE 1 TABLET BY MOUTH EVERY DAY NEEDED FOR ERECTILE DYSFUNCTI ON 12/19 completed Not Available Not Available Not Available tadalafil 20 mg tablet TAKE 1 TABLET BY MOUTH EVERY DAY 04/17 completed Not Available Not Available Not Available OneTouch Ultra2 Meter kit 04/17 completed Not Available Not Available Not Available Januvia 100 mg tablet TAKE ONE TABLET BY MOUTH ONCE DAILY 05/23 completed Not Available Not Available Not Available Jardiance 25 mg tablet Take 1 tablet every day by oral route. 07/04 completed Not Available Not Available Not Available Glyxambi 25 mg-5 mg tablet TAKE 1 TABLET BY MOUTH EVERY DAY active Not Available Not Available No t Available Rybelsus 3 mg tablet Take 1 tablet every day by oral route. 07/04 completed Not Available Not Available Not Available Afluria Qd 2019- (36 mos up)(PF)60 mcg (15 mcg x4)/0.5 mL IM syringe 12/19 completed Not Available Not Available Not Available Mounjaro 7.5 mg/0.5 mL subcutaneou s pen injector Inject 0.5 mL every week by subcutane ous route. 2024 active Not Available Not Available Not Avai lable Mounjaro 5 mg/0.5 mL subcutaneou s pen injector ADMINISTE R 5 MG UNDER THE SKIN EVERY WEEK 12/19 completed Not Available Not Available Not Available Mounjaro 2.5 mg/0.5 mL subcutaneou s pen injector ADMINISTE R 2.5MG UNDER THE SKIN ONCE A WEEK 01/08 completed Not Available Not Available Not Available Vitals Date Recorded Body height Body mass index (BMI) Body weight Body temperature Heart rate Oxygen saturation Oxygen saturation in Arterial blood by Pulse oximetry Systolic And Diastolic Provider Name and Address Organization Details Last Updated DateTime 5 172.72 cm 25.8 kg/m2 62815.7 g 96.4 [degF] 70 /min 98 % 98 % 126/80 mm[Hg] Rhea Mckeon RN [facility] [employer] [facility] 5 08:26:09 Date Recorded Body height Body mass index (BMI) Body weight Body temperature Heart rate Oxygen saturation Oxygen saturation in Arterial blood by Pulse oximetry Systolic And Diastolic Provider Name and Address Organization Details Last Updated DateTime 4 172.72 cm 27.4 kg/m2 42255.6 3 g 97.7 [degF] 74 /min 97 % 97 % 160/78 mm[Hg] Rhea Mckeon RN [facility] [employer] [facility] 4 08:14:02 Date Recorded Body height Body mass index (BMI) Body weight Body temperature Heart rate Oxygen saturation Oxygen saturation in Arterial blood by Pulse oximetry Systolic And Diastolic Provider Name and Address Organization Details Last Updated DateTime 4 172.72 cm 26.9 kg/m2 15377.8 5 g 98.1 [degF] 66 /min 98 % 98 % 132/78 mm[Hg] Catrina Bowling MA [place] [facility] 4 09:22:03 Date Recorded Body height Body mass index (BMI) Body weight Body temperature Heart rate Oxygen saturation Oxygen saturation in Arterial blood by Pulse oximetry Systolic And Diastolic Provider Name and Address Organization Details Last Updated DateTime 3 172.72 cm 27.4 kg/m2 28702.6 3 g 97.6 [degF] 76 /min 98 % 98 % 140/82 mm[Hg] Rhea Mckeon RN [place] [facility] [employer] [facility] 3 15:49:59 Social History Question Answer Notes LastModified by [employer] Details LastModified Time Tobacco Smoking Status Never Smoker Not Available [facility] 06/14/2022 12:45:46 What Is Your Level Of Caffeine Consumption? Moderate [id number] Information not available 06/14/2022 In The 14 Days Before Symptom Onset, Have You Had Close Contact With A Laboratory-confirm ed COVID-19 While That Case Was Ill? No [id number] Information not available 06/14/2022 In The 14 Days Before Symptom Onset, Have You Had Close Contact With A Person Who Is Under Investigation For COVID-19 While That Person Was Ill? No [id number] Information not available 06/14/2022 What Type Of Diet Are You Following? REGULAR [id number] Information not available 06/14/2022 Have You Ever Been Counseled For Unhealthy Alcohol Use? No [email or web address] Information not available 08/02/2022 Do You Use Sunscreen Routinely? No [id number] Information not available 06/14/2022 Has Tobacco Cessation Counseling Been Provided? No Information not available 08/02/2022 Have You Recently Traveled Abroad? No [id number] Information not available 06/14/2022 Do You Have Any Dietary Restrictions? No [id number] Information not available 06/14/2022 Sex: Unknown Functional Status Question Answer Note LastModified by [employer] Details LastModified Time Do you or have you ever used any other forms of tobacco or nicotine? No [email or web address] Information not available 08/02/2022 What is your level of alcohol consumption? Occasional [id number] Information not available 06/14/2022 What is your exercise level? Moderate [id number] Information not available 06/14/2022 Mental Status None recorded. Family History Nothing Reported Notes:No prostate, no colon cancer Medical History No medical history recorded. Immunizations Vaccine Type Date Status Note Provider Nam e and Address Organization Details Recorded Time Influenza, split virus, quadrivalent, PF 2 completed Not Available [facility] 06/14/2022 12:50:24 Influenza, split virus, quadrivalent, PF 8 completed Not Available [facility] 06/14/2022 12:50:25 Influenza, split virus, quadrivalent, preservative 6 completed Not Available [facility] 06/14/2022 12:50:25 Past Encounters Encounter ID Performer Location Encounter Start Date Encounter Closed Date Diagnosis/Indication Diagnosis SNOMED-CT Code Diagnosis ICD10 Code Diagnosis IMO Codes Diagnosis Note [id number] Benoit Larry MD [facility] [place] [address] [place] [address] 07/13/2020 00:00:00 07/13/2020 08:35:35 [id number] Benoit Larry MD [facility] [place] [address] [place] [address] 05/12/2021 00:00:00 05/12/2021 09:05:28 [id number] Benoit Larry MD [facility] [place] [address] [place] [address] 10/12/2021 00:00:00 10/12/2021 08:34:52 [id number] Benoit Larry MD [facility] [place] [address] [place] [address] 02/22/2022 00:00:00 02/22/2022 08:15:53 [id number] Benoit Larry MD [facility] [place] [address] [place] [address] 05/25/2022 00:00:00 06/11/2022 16:37:38 [id number] Benoit Larry MD [facility] [address] [facility] [address] [place] [address] 08/02/2022 08:53:34 08/02/2022 09:23:57 Type 2 diabetes mellitus without complication 029177485 E11.9 a1c not at goal, cannot tolerate metforminc ontinue glipizide and glyxambitr ial of mounjaro 2.5 mg sc qweekcall with update in 2-3 weeks or sooner if needed Eczema [id number] L30.9 discussed care of dry, sensitive skinshorte r, cooler showersavo id lotions/so aps/produc ts with perfumes/d yesemollie nt lotions regularlyf amotidine 20 mg po bidtriamci nolone 0.1% cream bidcall Sunday if no improvemen t or sooner if needed Folliculitis 03668912 L7 3.9 [id number] Benoit Larry MD [facility] [address] [place] [address] 11/02/2022 08:33:01 11/02/2022 10:49:39 Type 2 diabetes mellitus without complication 768760286 E11.9 a1c was improved at 7.3 with mounjaroca nnot tolerate metforminc ontinue glipizide and glyxambico ntinue mounjaro 2.5 mg sc qweekcall with update in 2-3 weeks or sooner if needed [id number] Benoit Larry MD [facility] [address] [facility] [address] [place] [address] 03/05/2023 15:43:20 03/05/2023 17:09:42 Itching of skin [id number] L29.9 -has been itching for approx 9 months, all inclusive- had tried triamcinol one with positive relief-he stopped taking all of his meds d/t this issue-will give script for triamcinol one, hydroxyzin e-will rule out liver/thyr oid involvemen t Pain in right arm 420700 004 M79.601 -noted to left medial epicondyle and radiates down to left wrist-note s elbow popping when he straighten s-likely medial epicondyli tis-discus sed use of counter force strap-decl danita xray at this time-discu ssed use of OTC nsaids, steroids,- refill prednisone given [id number] Benoit Larry MD [facility] [address] [address] 07/12/2023 08:48:11 07/12/2023 11:10:48 [id number] Benoit Larry MD [facility] [address] [address] 07/19/2023 08:07:01 07/19/2023 08:48:08 Diabetes mellitus 40692156 E11.9 a1c excellent at 5.9continu e current medication sf/u in 6 months or sooner if needed Essential hypertension 86527657 I10 not in good controlinc rease losartan 100 mg dailyf/u in 6 months or sooner if needed Psoriasis 7925384 L40.9 triamcinol one bid prn rashif no improvemen t, will refer to derm [id number] AYDEN Lopez [facility] [address] [address] 12/20/2023 09:03:03 12/20/2023 09:42:45 Type 2 diabetes mellitus without complication 380858388 E11.9 Increased Mounjaro to 7.5mg weekly.Dis cussed diet and routine exercise.W ill recheck labs in 3 months.Pat ient will follow up in 3 months, sooner if needed. Erectile dysfunction [id number] F52.21 Will increase medication to 20mg.Patie nt will follow up as needed. Body mass index 25-29 - overweight [id number] Z68.26 BMI 26.9Discus sed healthy diet and exercise. Essential hypertension 22251279 I10 132/78Will refill meds as needed. [id number] AYDEN Lopez [facility] [address] [address] 04/17/2024 08:21:44 04/17/2024 08:42:32 Type 2 diabetes mellitus without complication [id number] E11.9 A1c 6.2 (03/2024) Diabetes mellitus 350650 09 E11.9 Essential hypertension 00991040 I10 132/78Will refill meds as needed. Health Concerns Section Related Observation LastModified by Organization Detai ls LastModified Time None Recorded Concern Status LastModified by Organization Details LastModified Time None Recorded Advance Directives Directive None Recorded Payers Insurance Date Sequence Insurance Name Policy Number Policy [place] Covered Member ID [place] Member ID Guarantor Name 07/25/2023 1 [employer] [facility] [id number] Ang Kearney [id number] Ang Kearney 04/29/2024 1 R (O) [id number] Heena Kearney [id number] Ang Kearney 04/17/2024 1 [facility] [id number] Ang Kearney [id number] Ang Kearney Notes Date Note Type Note Provider Name and Address Organization Details Recorded Time 03/05/2023 text/html Pt is here for arm pain and itching AYDEN Zepeda [address] [address], [place], [address], [employer] 03/05/2023 16:16:04 07/19/2023 text/html ROS as noted in the HPI feeling well, no chest pain or sob, weight has been stablehas occ very itchy spots that come up on body, uses otc lotion Benoit Larry MD [address] [facility] [address], [place], [address], [employer] 07/19/2023 08:29:00 12/20/2023 text/html ROS as noted in the HPI Patient is a 63 year old male that presents to the office for follow up. Patient reports he is doing well overall and has no complaints at this time. Patient denies chest pain and shortness of breath, nausea vomiting and diarrhea. Patient's A1c is increased from 6.9 to 7.2, will increase Mounjaro to 7.5mg weekly and repeat labs in 3 months. Patient reports he stopped going to [facility] after seeing his results. Patient reports he was going to [employer] three times every day. Patient would like to try a higher dose of Tadalafil as the 5mg did nothing for him. Patient is doing well on all other medications, will refill as needed. AYDEN Lopez [address], [place], [address], [employer] 12/20/2023 22:31:53 04/17/2024 text/html ROS as noted in the HPI Patient is a 63 year old male that presents to the office for 3 month follow up.Patient reports he is doing well overall. Patient recently had a hearing test completed and was told he needs hearing aids however his insurance states he has to meet his deductible first and it is $5,000 so he is not going to be getting them until he gets on Medicare in July. Patient also reports his skin has been itching all over, he has tried lotion and triamcinolone cream without relief of symptoms. Started taking a daily allergy medication to see if itching improves. AYDEN Lopez [address], [place], [address], [employer] [place] 04/17/2024 09:07:56
--- OUTSIDE RECORDS SUMMARY | 2025-02-19 11:19 | XMS_ITS | Clinical Summary ---
Author Organization [facility] Address [facility] [place] [address] Care Team Providers Care Retail Mortgage Banker Name Role Phone Unavailable Primary Care Provider Unavailabl e Social History Tobacco Use Types Packs/Day Years Used Date Smoking Tobacco: Never Assessed Sex and Gender Information Value Date Recorded Sex Assigned at Not on file Legal Sex Male 4:23 PM CDT Gender Identity Not on file Sexual Orientation Not on file Plan of Treatment Health Maintenance Due Date Last Done Comments Colorectal Cancer Screening Colonoscopy (10 Years) 1960 Hepatitis C 08/03/1977 DTaP, Tdap and Td Vaccines ( 1 - Tdap) 08/03/1978 Pneumococcal Vaccine: 50+ Ye ars (1 of 1 - PCV) 08/03/2009 Zoster Vaccines (1 of 2) 08/03/2009 COVID-19 Vaccine ( - 2024-2 6 season) 2024 Influenza Adult (#1) 2025 RSV Immunization or 60+ Years (1 - 1-dose 75+ series) 08/03/2034 Hepatitis A Vaccines Aged Out No long er eligible based on patient's age to complete this topic Meningococcal B Vaccine Aged Out No l onger eligible based on patient's age to complete this topic Meningococcal Vaccine Aged Out No luis a cinda eligible based on patient's age to complete this topic RSV Immunizations Under 20 Months Aged Out No longer eligible based on patient's age to complete this topic
--- OUTSIDE RECORDS SUMMARY | 2025-02-19 11:19 | XMS_ITS | Encounter Summary ---
Author Organization [employer] Address [address] [place] [address] Care Team Providers Care Aircraft Accessories Mechanic Name Role Phone Isadora Larry MD Primary Care Provider + Encounter Details Date Type Department Care Team (Late st Contact Info) Description 11/06/2019 Chart Note [facility] Radiation Therapy [address] [place] [address] [place] [address] [place] [address] Social History Tobacco Use Types Packs/Day Years Used Date Smoking Tobacco: Never Assessed Sex and Gender Information Value Date Recorded Sex Assigned at Not on file Legal Sex Male 9:27 PM CDT Gender Identity Not on file Sexual Orientation Not on file COVID-19 Exposure Response Date Recorded In the last month, have you been in contact with someone who was confirmed or suspected to have Coronavirus / COVID-19? No / Unsure 11/07/2019 9:08 AM CDT documented as of this encounter Plan of Treatment Not on file documented as of this encounter Visit Diagnoses Diagnosis Malignant neoplasm of prostate (CMS/HCC) Malignant neoplasm of prostate documented in this encounter Care Teams Aircraft Accessories Mechanic Relationship Specialty Start Date End Date Isadora Larry MD [address] [place] [address] [place] [phone] PCP - General Family Practice 12/08/19 documented as of this encounter
== END 2025-02-18 13:04 | disposition home or self-care (01) ==
LOC: ANHAUDIO 13:04
PROVIDERS: PCP Family Medicine; Visit Provider Nurse Practitioner Family
DX: H90.3 Sensorineural hearing loss, bilateral (principal); H93.13 Tinnitus, bilateral; H74.8X2 Other specified disorders of left middle ear and mastoid; Z82.2 Family history of deafness and hearing loss
CPT/HCPCS: 92557; 92567